=== PATIENT | female | born 1995 | race Caucasian/White ===

== ENCOUNTER 2019-09-01 07:47 | Outpatient (CLI) | payer OTHER, SELFPAY ==
--- NOTE | ~2019-09-01 | MR_ITS ---
EXAMINATION: MR brain/brain stem wo con DATE: 09/01/2019 08:45 INDICATION: Headache TECHNIQUE: Magnetic resonance imaging (MRI) of the brain and brainstem was performed without intraven ous contrast. Sequences included sagittal and axial T1-weighted SE, axial diffusion-weighted FS SE, a xial T2*-weighted GRE, axial T2-weighted FLAIR, and axial T2-weighted FSE. Apparent diffusion coeffic ient (ADC) maps were created. COMPARISON: None. FINDINGS: There are no areas of restricted diffusion to suggest acute infarction. No intracranial hemorrhage or abnormal intracranial mass lesion. There are a few tiny nonspecific foci of nonspecific increased T2 -weighted signal intensity in the periventricular white matter. There are no intraparenchymal signal abnormalities seen on the other pulse sequences. The ventricles are symmetric and normal in size. The re are no abnormal extra-axial fluid collections. Flow voids are seen in the cerebral arteries on the T2-weighted sequences consistent with their expected patency. Visualized orbits and soft tissues are unremarkable. IMPRESSION: 1. A few tiny foci of nonspecific increased T2 signal in the periventricular white matter. Otherwise unremarkable study with no acute intracranial process. Reviewed, dictated and finalized at location A. IMPRESSION: 1. A few tiny foci of nonspecific increased T2 signal in the periventricular wh ite matter. Otherwise unremarkable study with no acute intracranial process.
== END 2019-09-01 07:48 | disposition home or self-care (01) ==
PROVIDERS: PCP Family Medicine; Visit Provider Family Medicine
DX: R51 Headache (principal)
CPT/HCPCS: 70551

== ENCOUNTER → 2020-05-17 14:46 | Outpatient (CLI) | payer OTHER, SELFPAY ==
--- NOTE | ~2020-05-17 | US_ITS ---
US breast LT complete DATE: 05/17/2020 15:01 INDICATION: Left breast lump at 12:00 for one month TECHNIQUE: Complete left breast ultrasound examination COMPARISON: None FINDINGS: There is a 1.5 x 4.5 mm cyst at 2:00 7 cm from the nipple. No suspicious mass or shadowing is detected. No abnormality is noted in the area of clinical complain t. IMPRESSION: No mammographic evidence of malignancy BI-RADS Category 2: Benign Reviewed, dictated and finalized at [facility]. Reviewed, dictated and finalized at location A. TENANCE DIRECTOR
== END ==
PROVIDERS: Visit Provider Obstetrics & Gynecology
DX: N63.20 Unspecified lump in the left breast, unspecified quadrant (principal)
CPT/HCPCS: 76641